=== PATIENT | male | born 1940 | race Caucasian/White ===

== ENCOUNTER → 2020-10-14 13:21 | Outpatient (BNVA) | payer MEDICARE, SELFPAY | PROVIDERS: PCP Internal Medicine Medical Oncology; Referring Provider Internal Medicine Medical Oncology; Visit Provider Surgery | DX: D17.1 Benign lipomatous neoplasm of skin and subcutaneous tissue of trunk (principal) | CPT/HCPCS: 99202 ==

== ENCOUNTER 2020-11-04 07:51 | Outpatient (REF) | payer MEDICARE, SELFPAY ==
[2020-11-04 07:58] VITALS: BMI 29.9
[2020-11-04 08:00] VITALS: BP 148/98; PULSE 89; RESP 16; TEMP 36.8; O2SAT 99
[2020-11-04 08:25] VITALS: BP 159/94; PULSE 87; RESP 16; O2SAT 96
--- NOTE | 2020-11-04 08:31 | P.OP_ITS ---
Operative Note Operative Note Date of Service: 11/04/20 Narrative: Preoperative diagnosis: Lipoma right posterior buttock Postoperative diagnosis: Same Procedure: Excision of lipoma right posterior buttock Surgeon: Darnell Faria MD Instrument And Electrical Technician: No physician Anesthesia: Local Indications for procedure: 80-year-old male patient with a pedunculated soft tissue mass in the right buttock consistent with a large lipoma. Lesion measures approximately 2 cm in length Operative findings: Pedunculated lipoma of the right buttock Specimen: Lipoma right buttock Estimated blood loss: 2 mL Complications: None Procedure details: Patient was brought to the minor surgery suite and placed in a prone position. After confirming the site of surgery and assuring informed consent the skin was prepped with Betadine and draped in a sterile fashion. Local anesthesia consisting of 1% lidocaine was infiltrated circumferentially around the soft tissue mass. An elliptical incision was then created with a 15 blade and carried out through subcutaneous tissue and around the lipoma wall. Skin was then closed using interrupted 4-0 nylon sutures. Incision was then covered with a Tegaderm dressing. Patient tolerated the procedure well was discharged to home in stable condition.
== END 2020-11-04 07:52 | disposition home or self-care (01) ==
LOC: HO.MS 07:51
PROVIDERS: PCP Internal Medicine Medical Oncology; Visit Provider Surgery
PROC: (CPT 21930; principal; 2020-11-04 08:00)
DX: D17.1 Benign lipomatous neoplasm of skin and subcutaneous tissue of trunk (principal); J45.909 Unspecified asthma, uncomplicated; N40.0 Benign prostatic hyperplasia without lower urinary tract symptoms; Z79.899 Other long term (current) drug therapy; Z88.8 Allergy status to other drugs, medicaments and biological substances; Z88.1 Allergy status to other antibiotic agents
CPT/HCPCS: 21930; 88304; 88341; 88342

== ENCOUNTER → 2020-11-13 08:48 | Outpatient (BNVA) | payer MEDICARE, SELFPAY | PROVIDERS: PCP Internal Medicine Medical Oncology; Visit Provider Surgery | DX: Z48.3 Aftercare following surgery for neoplasm (principal); D36.17 Benign neoplasm of peripheral nerves and autonomic nervous system of trunk, unspecified | CPT/HCPCS: 99212 ==

== ENCOUNTER → 2021-03-10 13:32 | Outpatient (BNVA) | payer MEDICARE, SELFPAY | PROVIDERS: PCP Internal Medicine Medical Oncology; Visit Provider Surgery | DX: D23.9 Other benign neoplasm of skin, unspecified (principal) | CPT/HCPCS: 99212 ==

== ENCOUNTER 2021-03-31 07:55 | Outpatient (REF) | payer MEDICARE, SELFPAY ==
[2021-03-31 07:59] VITALS: BMI 29.7
[2021-03-31 08:00] VITALS: BP 182/99; PULSE 93; RESP 16; TEMP 36.9; O2SAT 98
[2021-03-31 08:36] VITALS: BP 158/84; PULSE 76; RESP 16; O2SAT 96
--- NOTE | 2021-04-01 15:22 | P.OP_ITS ---
Operative Note Operative Note Date of Service: 03/31/21 Narrative: Preoperative diagnosis: Skin lesions bilateral ears Postoperative diagnosis: Same Procedure: Excision of skin lesions bilateral ears, right x1 left x2 Surgeon: Darnell Faria MD Mixer Wet Pour: None Anesthesia: Local Indications for procedure: 80-year-old male patient with crusted lesions suggestive of skin neoplasm involving the helix of bilateral ears. Operative findings: Skin lesions bilateral ears, right measuring 0.5 cm in diameter, left measuring 0.75 cm and 0.25 cm diameter Specimen: Skin lesions bilateral ears, right x1 left x2 Estimated blood loss: 2 mL Complications: None Procedure details: Patient was brought to the minor surgery suite placed in a sitting position. The site of surgery was confirmed by the patient in the bilateral ears. After assuring informed consent the years were prepped with Betadine and draped in a sterile fashion. Beginning on the left side local anesthesia was infiltrated around the lesion located at the helix of the year. Elliptical incision was made around each lesion in lesion excised. The incision was oriented parallel to the helix. Both lesions were sent to pathology for further examination. Skin was then closed using interrupted 5 0 nylon sutures. Attention was then directed to the right ear were again local anesthesia was infiltrated around the lesion. An elliptical incision was then created oriented parallel to the helix. Incision was carried down through subcutaneous tissue around the lesion. Skin was then closed using interrupted 5 0 nylon sutures. It should be noted that 2 mm margins were used around all 3 lesions. Bacitracin ointment was applied to the wounds. The patient tolerated the procedure well and was discharged to home in stable condition.
== END 2021-03-31 07:56 | disposition home or self-care (01) ==
LOC: HO.MS 07:55
PROVIDERS: PCP Internal Medicine Medical Oncology; Visit Provider Surgery
PROC: (CPT 11440; principal; 2021-03-31 08:00)
DX: D23.9 Other benign neoplasm of skin, unspecified (principal); L82.1 Other seborrheic keratosis
CPT/HCPCS: 11440; 11441; 88305

== ENCOUNTER → 2021-04-09 10:32 | Outpatient (BNVA) | payer MEDICARE, SELFPAY | PROVIDERS: PCP Internal Medicine Medical Oncology; Visit Provider Surgery | DX: Z48.817 Encounter for surgical aftercare following surgery on the skin and subcutaneous tissue (principal); Z87.2 Personal history of diseases of the skin and subcutaneous tissue | CPT/HCPCS: 99212 ==

== ENCOUNTER → 2024-12-31 14:45 | Outpatient (REF) | payer MEDICARE, SELFPAY ==
--- OUTSIDE RECORDS SUMMARY | 2024-12-12 12:00 | XMS_ITS ---
Author Organization Rocael Flores III, MD Address [address] [place] [address] Care Team Providers Care Cartoon Artist Name Role Phone Rocael Flores Primary Care Provider Allergies Allergen (clinical drug ingredient) Drug/Non Drug Allergy documented on EMR Reaction Allergy Type Onset Date Status ciprofloxacin Cipro Unknown Drug Allergy Act tigre REASON FOR VISIT Prostate cancer, stage unknown, Malignant melanomas, Benign prostatic hypertrophy, Hypertension, Hyperlipidemia, Obesity Medications Medication SIG (Take, Route, Frequency, Duration) Notes Start Date End Date Status Mupirocin 2 % PLEASE SEE ATTACHED FOR DETAILED DIRECTIONS External Active Hydrocortisone 1 % 1 application Pipe Finishing Supervisor ally Twice a day 12/16/2023 Active Finasteride 5 MG 1 tablet Orally Once a day 02/20/2024 Active Metoprolol Succinate ER 50 MG TAKE 1 TABLET BY MOUTH EVERY DAY Active Social History Tobacco Use: Social History Observation Description Date Details (start date - stop date) Never Smoker NA - NA Sex Assigned At : Social History Observation Description Sex Assigned At Male Tobacco Use/Smoking Question Answer Notes Patient is a nonsmoker Additional Findings: Tobacco Non-User Aggressive non-smoker Problems Problem Type SNOMED Code ICD Code Onset Dates Problem Status W/U Status Risk Notes Problem [id number] 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 The one on his left shoulder was 1.5 mm more on the right was 0.5 for the reservoir level. Is going to see a surgeon tomorrow to discuss aggressive resection. Vital Signs Temperature 98.5 degrees Fahrenheit 12/13/19 25 Blood pressure systolic 149 mm Hg 12/13/19 25 Blood pressure diastolic 91 mm Hg 025 Heart Rate 61 /min 12/12/2024 Height 69 in 12/12/2024 Weight 204 lbs 12/12/2024 BMI 30.12 kg/m2 12/12/2024 Encounters Encounter Location Date Provider Diagnosis Rocael Flores III, MD [address] [place] [address] [address]ED, [place]OT[place] [id number] 12/12/2024 Rocael Flores Obesity, unspecified E66.9 ; Multiple primary malignant melanomata C43.9 ; Benign prostatic hyperplasia without lower urinary tract symptoms N40.0 ; Essential (primary) hypertension I10 ; Arthritis of knee, 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 She has gained 10 pounds since his last visit. I recommended aggressive weight loss, sodium restriction through a diet low in animal fat, designed to use one half of a pound per week. 12/12/2024 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 The one on his left shoulder was 1.5 mm more on the right was 0.5 for the reservoir level. Is going to see a surgeon tomorrow to discuss aggressive resection. 12/12/2024 Benign prostatic hyperplasia without lower urinary tract symptoms (ICD-10 - N40.0) He reports rising 2 or 3 times a night to urinate. He does not wish to go back to urology for to have a prostate biopsy artery of any new medications. He says he goes right back to sleep and is happy with his quality of life at this time. 12/12/2024 Essential (primary) hypertension (ICD-10 - I10) His blood pressure is stable at 140/70. No change in his regimen was made today. 12/12/2024 Arthritis of knee, right (ICD-10 - M17.11) The pain in his knee is about the same as on his last visit. He has been to the orthopedist. He is considering whether to have surgery your continue with injections of gel. 12/12/2024 Hyperlipidemia, unspecified hyperlipidemia type (ICD-10 - E78.5) His lipids have been stable. Fasting lipid profile is being done periodically. 12/12/2024 Vitamin D deficiency (ICD-10 - E55.9) He will continue on a vitamin D supplement. 12/12/2024 Prostate nodule (ICD-10 - N40.2) He is under the care of Urology I counseled him today to allow the biopsy and appropriate treatment to take place. He is going to consider it.He has toe the urologist he does not want a biopsy or treatment the PSA has been stable. Last September, when he saw the urologist last the PSA has dropped slightly. Plan Of Treatment Medication Medication Name Sig Start Date Stop Date Notes Mupirocin 2 % PLEASE SEE ATTACHED FOR DETAILED DIRECTIONS External Hydrocortisone 1 % 1 application Pipe Finishing Supervisor ally Twice a day 12/16/2023 Finasteride 5 MG 1 tablet Orally Once a day 02/20/2024 Metoprolol Succinate ER 50 MG TAKE 1 TAB LET BY MOUTH EVERY DAY Next Appt Details Follow Up: 6 Weeks, Reason: OV Provider Name:Rocael Flores, 01/23/2025 03:00:00 PM, [address] [place] [address] [address], [place], [address], Provider Name:Rocael Flores, 09/13/2025 04:00:00 PM, [address] [place] [address] [address], [place], [phone], Progress Notes * MARKOS Logan Bolanos JrDOB:[birth year] (84 yo M)Acc No.[id number]:12/12/2024 Progress Notes Patient: Logan LEWIS Luis Miguel Schaefer Provider: Cuong Flores MD :1940 A ge:84 Y S ex:Male Date:12/12/2024 Address:[address] [place] [id number] Subjective: * Chief Complaints: * P rostate cancer, stage unknownMalignant melanomasBenign prostatic hypertrophyHypertensionHyperlipidemiaObesity * HPI: C OVID-19 Screening: He went to a digital marketing lead recently and was found to have a suspicious cutaneous neoplasm on both shoulders left than right. Biopsy of the lesion on the left shoulder malignant melanoma 1.5 mm in depth. The lesion on the right shoulder showed malignant melanoma 0.5 mm in depth.? He has an appointment tomorrow with the surgeon in [facility] to discussed primary treatment. We had a long discussion today about the approach this. I made several points.? The first was at his prostate cancer is much more chronic and indolent process. He has refused to allow the neurologist to obtain a tissue diagnosis. A biopsy of prostate years ago resulted in an episode of sepsis and he is afraid of this being repeated. Malignant melanoma however more virulent and lethall. The pointed his prognosis could be determined after surgery and possibly after staging imaging. I believe he will agree to the surgery. Family is going to call me after the consultation to inform me. He admits to nocturia 2 or 3 times a night.? He is now in assisted living. He has a brace on his right foot because he says it drags when he walks. This development will be investigated. He is otherwise healthy and well.? His mind is intact. Questions H ave you had any new onset fever, chills, cough, congestion, sore throat, shortness of breath, muscle aches? N o * ROS: G eneral/Constitutional: pain R ight knee, otherwise only normal aches and pains.?Chills d enies. F atigue a dmits. F ever d enies. E NT: Decreased hearing d enies. R espiratory: Cough d enies. C ardiovascular: Chest pain with exertion d enies. D yspnea on exertion?with moderate activity. S hortness of breath w ith exertion. G astrointestinal: Constipation d enies. D ecreased appetite d enies.?Diarrhea d enies. H eartburn d enies. N ausea d enies. R ectal bleeding?denies. V omiting d enies. H ematology: bruising d enies. p etechiae d enies. S wollen glands n one have been noted. G enitourinary: Frequent urination t hree times a night. M usculoskeletal: Muscle aches d enies. P ainful joints d enies. S ciatica d enies. W eakness t hat is generalized. S kin: Itching d enies. R megan d enies. S kin lesion(s)?denies. N eurologic: Difficulty speaking d enies. D izziness d enies.?Headache d enies. L ow back pain d enies. P sychiatric: Depressed mood d enies. * Medical History: * Surgical History: h erniorrhaphy torn meniscus left knee 2014No history * Hospitalization/Major Diagno stic Procedure: N o history * Family History: F ather: 80 yrs, emphysema, cardiomyopathy. M other: 77 yrs, cardiac disease, myocardial infarction. 2 brother(s) - healthy. 3 daughter(s) . . One daughter suffers form lung problems, one daughter had a brain tumor, and had radiation. * Social History: T obacco Use: T obacco Use/Smoking P contreras is a n onsmoker A dditional Findings: Tobacco Non-User A ggressive non-smoker Zo jackson has been to his Irene for many years. They have 4 daughters. He and his are both accountants. He lives in [place]. * Medications: T akingFinasteride 5 MG Tablet 1 tablet Orally Once a day Hydrocortisone 1 % Cream 1 application Externally Twice a day Metoprolol Succinate ER 50 MG Tablet Extended Release 24 Hour TAKE 1 TABLET BY MOUTH EVERY DAY Mupirocin 2 % Ointment PLEASE SEE ATTACHED FOR DETAILED DIRECTIONS External Medication List reviewed and reconciled with the patientTaking Finasteride 5 MG Tablet 1 tablet Orally Once a day Taking Hydrocortisone 1 % Cream 1 application Externally Twice a day Taking Metoprolol Succinate ER 50 MG Tablet Extended Release 24 Hour TAKE 1 TABLET BY MOUTH EVERY DAY Taking Mupirocin 2 % Ointment PLEASE SEE ATTACHED FOR DETAILED DIRECTIONS External Medication List reviewed and reconciled with the patient * Allergies: C iprono[Allergies Verified] Objective: * Vitals: H t: 69, Wt:204, BMI:30.12, BP:149/91, HR:61, Temp:98.5, Ht-cm: 175.26, Wt-k.53. * Examination: G eneral Examination: GENERAL APPEARANCE: p leasant, well nourished, well developed, in no acute distress, calm and relaxed: obese: elderly man. HEAD: a traumatic, normocephalic. EYES: e david, perrla, anicteric, conjugate. EARS: n ormal. NOSE: s eptum intact. ORAL CAVITY: n ormal, unremarkable. NECK/THYROID: n o jugular venous distention, no carotid bruit, thyroid normal. LYMPH NODES: n o enlarged lymph nodes,spleen normal. SKIN: n o suspicious lesions, anicteric. HEART: n o clicks, gallops, murmurs, or rubs, regular rhythm, S1, S2 normal, no s3, or vascular bruits. LUNGS: c lear to auscultation . BREASTS: no masses palpable bilaterally. ABDOMEN: b owel sounds normal, no ascites, no organomegaly, no mass: centripital obesity. RECTAL EXAM: n ot examined. MUSCULOSKELETAL: e xtremities unremarkable, no clubbing, cyanosis or edema. PERIPHERAL PULSES: n ormal. NEUROLOGIC: a lert and oriented, cranial nerves 2-12 grossly intact, deep tendon reflexes 2+ symmetrical, motor strength diminishedupper and lower extremities, sensory exam intact, Speech clear, cognitive function intact, memory without deficits, generalized musculoskeletal weakness, uses a walker. PSYCH: a lert, oriented: cognitive function intact: cooperative with exam: good eye contact: speech clear: thought process logical, goal directed. ? Assessment: * Assessment: 1. M hughtiple primary malignant melanomata - C43.9 (Primary) N otes :He has a lesion on each shoulder. The one on his left shoulder was 1.5 mm more on the right was 0.5 for the reservoir level. Is going to see a surgeon tomorrow to discuss aggressive resection. 2 . O besity, unspecified - E66.9 N otes :His body mass index is 31. She has gained 10 pounds since his last visit. I recommended aggressive weight loss, sodium restriction through a diet low in animal fat, designed to use one half of a pound per week. 3 . B enign prostatic hyperplasia without lower urinary tract symptoms - N40.0? Notes :He reports rising 2 or 3 times a night to urinate. He does not wish to go back to urology for to have a prostate biopsy artery of any new medications. He says he goes right back to sleep and is happy with his quality of life at this time. 4 . E ssential (primary) hypertension - I10 N otes :His blood pressure is stable at 140/70. No change in his regimen was made today. 5 . A rthritis of knee, right - M17.11 N otes :The pain in his knee is about the same as on his last visit. He has been to the orthopedist. He is considering whether to have surgery your continue with injections of gel. 6 . H yperlipidemia, unspecified hyperlipidemia type - E78.5 N otes :His lipids have been stable. Fasting lipid profile is being done periodically. 7 . V itamin D deficiency - E55.9 N otes :He will continue on a vitamin D supplement. 8 . P rostate nodule - N40.2 N otes :He is under the care of Urology I counseled him today to allow the biopsy and appropriate treatment to take place. He is going to consider it.He has toe the urologist he does not want a biopsy or treatment the PSA has been stable. Last September, when he saw the urologist last the PSA has dropped slightly. Plan: * Treatment: 2. O thers Continue Metoprolol Succinate ER Tablet Extended Release 24 Hour, 50 MG, TAKE 1 TABLET BY MOUTH EVERY DAY; C ontinue Finasteride Tablet, 5 MG, 1 tablet, Orally, Once a day; C ontinue Hydrocortisone Cream, 1 %, 1 application, Externally, Twice a day. * Procedure Codes: * Preventive Medicine: Counseling: C are goal follow-up plan: Counseling for abnormal BMI given Y es Above Normal BMI Follow-up D ietary management education, guidance, and counseling, Dietary needs education, Exercise promotion: strength training, Exercise promotion: stretching, Feeding regime, Giving encouragement to exercise, Lifestyle education regarding diet, Nutrition / feeding management, Nutrition therapy, Prescribed activity/exercise education, Prescribed diet education, Prescribed dietary intake, Special diet education, Weight monitoring , Intervention, Order not done: Medical or Other reason not done * Follow Up: 6 Weeks (Reason: OV) * Images: * Sign off status: Completed true * Provider: Cuong Flores MD Date: 12/12/2024 Generated for Eric ferrer/Faxing/eTransmitting on: 0 12/31/2024 08:14 PM EDT History and Physical Notes * HPI (History of Present Illness) Category Sub-Category Detail Notes COVID-19 Screening Questions Have you had any new onset fever, chills, cough, congestion, sore throat, shortness of breath, muscle aches?: No Examination Category Sub-Category Detail Notes General Examination GENERAL APPEARANCE: pleasant , well nourished, well developed, in no acute distress, calm and relaxed: obese: elderly man HEAD: atraumatic, normocep halic EYES: eomi, perrla, anicte bianka, conjugate EARS: normal NOSE: septum intact NECK/THYROID: no jugular venous di stention, no carotid bruit, thyroid normal HEART: no clicks, gallops, murmurs, or rubs, regular rhythm, S1, S2 normal, no s3, or vascular bruits LUNGS: clear to auscultatio n ABDOMEN: bowel sounds normal, no ascites, no organomegaly, no mass: centripital obesity NEUROLOGIC: alert and oriented, cranial nerves 2-12 grossly intact, deep tendon reflexes 2+ symmetrical, motor strength diminishedupper and lower extremities, sensory exam intact, Speech clear, cognitive function intact, memory without deficits, generalized musculoskeletal weakness, uses a walker SKIN: no suspicious lesion s, anicteric PERIPHERAL PULSES: normal BREASTS: no masses palpable b ilaterally MUSCULOSKELETAL: extremities unremark able, no clubbing, cyanosis or edema LYMPH NODES: no enlarged lymph no keren,spleen normal RECTAL EXAM: not examined PSYCH: alert, oriented: cog nitive function intact: cooperative with exam: good eye contact: speech clear: thought process logical, goal directed ORAL CAVITY: normal, unremarkable
--- OUTSIDE RECORDS SUMMARY | 2024-12-12 12:19 | XMS_ITS ---
Author Organization Rocael Flores III, MD Address [address] [address] Care Team Providers Care Rechecker Name Role Phone Rocael Flores Primary Care Provider [phone] REASON FOR VISIT Surgical Appointments Social History Sex Assigned At : Social History Observation Description Sex Assigned At Male Encounters Encounter Location Date Provider Diagnosis Rocael Flores III, MD [address] [place] [address] [place] [phone] 12/12/2024 Rocael Flores Plan Of Treatment Next Appt Details Provider Name:Rocael Flores, 01/23/2025 03:00:00 PM, [address] [place] [address] [place], [address], Provider Name:Rocael Flores, 09/13/2025 04:00:00 PM, [address] [place] [address] [place], [address], Progress Notes * Logan BURROWS JrDOB:[birth year] (84 yo M)Acc No.[id number]:12/12/2024 Patient: Zo SAUCEDOLogan Jr :1940 A ge:84 Y S ex:Male Address:[address] [place] [phone] * true * Date: Generated for Printi ng/Faxing/eTransmitting on: 0 12/31/2024 08:13 PM EDT
--- OUTSIDE RECORDS SUMMARY | 2024-12-14 10:03 | XMS_ITS ---
Author Organization Rocael Flores III, MD Address [address] [place] [address] Care Team Providers Care Front End Ui Developer Name Role Phone Rocael Flores Primary Care Provider [phone] REASON FOR VISIT FYI Social History Sex Assigned At : Social History Observation Description Sex Assigned At Male Encounters Encounter Location Date Provider Diagnosis Rocael Flores III, MD [address] [place] [address] [place] [address] 12/14/2024 Rocael Flores Plan Of Treatment Next Appt Details Provider Name:Rocael Flores, 01/23/2025 03:00:00 PM, [address] [place] [address] [place], [address], Provider Name:Rocael Flores, 09/13/2025 04:00:00 PM, [address] [place] [address] [place], [address], Progress Notes * Logan BURROWS JrDOB:[birth year] (84 yo M)Acc No.[id number]:12/14/2024 Patient: Zo SAUCEDOLogan Jr :1940 A ge:84 Y S ex:Male Address:[address] [place] [phone] * true * Date: Generated for Printi ng/Faxing/eTransmitting on: 0 12/31/2024 08:14 PM EDT
--- OUTSIDE RECORDS SUMMARY | 2024-12-20 11:30 | XMS_ITS | Encounter Summary ---
Author Organization [facility] Address [address] [place] [address] Care Team Providers Care Vegetable Tier Name Role Phone Rocael Flores MD Primary Care Provider [phone] Reason for Referral * Imaging (Routine) - Closed Specialty Diagnoses / Procedures Referred By Dianelys t Referred To Contact Diagnoses Melanoma of neck (CMS/HCC V24, CMS/HCC V28) Melanoma of back (CMS/HCC V24, CMS/HCC V28) Procedures NM Tumor Loc SPECT w CT Single Area 1 Day Shruti Haq MD [address] [facility], [address] [place] [address] Phone: tel: fax: External Performed Referral ID Status Reason Start Date Expiration Date Visits Re quested Visits Authorized [id number] Closed 12/28/2024 12/28/2025 1 1 Reason for Visit * Reason Comments melanoma back Encounter Details Date Type Department Care Team (Late st Contact Info) Description 12/20/2024 11:30 AM EDT Consult [facility] [place] [address] [place] [address] Shruti Haq MD [address] [facility], [address] [place] [address] Melanoma of neck (CMS/HCC V24, CMS/HCC V28) (Primary Dx); Melanoma of back (CMS/HCC V24, CMS/HCC V28) Social History Tobacco Use Types Packs/Day Years Used Date Smoking Tobacco: Never Assessed Sex and Gender Information Value Date Recorded Sex Assigned at Not on file Legal Sex Male 7:58 PM EST Gender Identity Not on file Sexual Orientation Not on file documented as of this encounter Progress Notes * Leeann Irizarry MA - 12/20/2024 11:30 AM EDTAddended by: LEEANN IRIZARRY on: 12/28/2024 03:13 PM Modules accepted: Orders * Leeann Irizarry MA - 12/20/2024 11:30 AM EDTAddended by: LEEANN IRIZARRY on: 12/28/2024 03:18 PM Modules accepted: Orders * Shruti Haq MD - 12/20/2024 11:30 AM EDT General Surgery Outpatient Consultation Note Chief Complaint Patient presents with melanoma back HPI: Mr. Astorga is a 84 y.o. year old male referred to us by JAIRO Ochoa for evaluation and management of 2 biopsy-proven melanoma 1 located in his left posterior trapezial neck region which was 1.5 mm deep with 3 mitotic figures, there was some ulceration, there was some regression, there was no lymphovascular invasion however the deep margin was positive for invasive melanoma. The other lesion is located on his right upper back, 0.5 mm deep with 0-1 mitotic figures. There was some regression. No lymphovascular invasion and only the peripheral margin was involved with melanoma in situ making it a much less concerning lesion. Patient is accompanied by his daughter today. He does not have any history of skin cancer in the past. PMH: Hypertension, BPH, specifically patient tells me he has no known heart problems and has never followed up with cardiology PSH: He had knee surgery in 1957 Meds: Metoprolol, finasteride, calcium, multivitamin Alls: Patient has no allergy information on record. SH: Never smoker, no alcohol or drug use FH: Negative for melanoma ROS: Negative for headaches, dizziness, chest pain shortness of breath changes in the weight or appetite, dysuria. He does tend to get leg swelling and he does get urinary urgency. He does ambulate with the aid of a walker All other systems reviewed and are negative except the above and what is detailed in the HPI Physical Exam: General Appearance: NAD, conversant Psych: A&O x 3, affect appropriate Neuro: GCS 15, CAN x 4, he is able to ambulate but does utilize a walker and is fairly slow HEENT: no scleral icterus or pallor, mucus membranes moist Neck: Within the left posterior lateral trapezial neck there is an approximately 2 x 1.5 cm lesion that still has some pigmentation along 1 edge the other part is healed over and is erythematous fromthe shave biopsy. This is the lesion that is more deeply invasive. I do not feel any adenopathy anteriorly posteriorly or within the supraclavicular fossa bilaterally Axilla: I do not feel any axillary adenopathy bilaterally Lungs: no accessory respiratory muscle use Back: Within the right upper back there is a 1.3 x 1.4 cm erythematous spot with no residual pigmentation consistent with the other melanoma that is more thin. At this point the patient his daughter and I had a very long conversation regarding the nature of these 2 melanoma. They both require wide excision probably with a 1 cm margin at most for the lesion on the right upper back and probably a little bit more than that but not quite to located in the left posterior lateral trapezial neck region. I think the right upper back will be able to be closed with a layered closure while he will require a flap closure for the posterior neck given the anticipated size of the resection. We also described the fact that because the melanoma on the left posteriorlateral neck region was more than a millimeter deep sentinel lymph nodes will be obtained from the either cervical or axillary region depending on the results of a lymphoscintigram which we will complete on the morning of surgery. Risks of surgery include bleeding, infection, need for further surgery for cosmesis. Will need to wait for the results in terms of the everardo status. I told them that mar gins do not usually tend to be much of an issue when we are doing a wider excision for these lesions. If however he has everardo disease he will require referral to oncology for consideration of immune therapy but hopefully if the lymph nodes are negative and everything is clear he can just revert back to routine follow-up with surgery and dermatology for exams periodically. All questions answered during this consult and we will get him on the schedule at his convenience. He tells me he just had afull physical so probably does not need to have his labs repeated but has not had an EKG in a while ASSESSMENT / PLAN: 84-year-old male presenting due to invasive melanoma 1 involving the left posterior lateral neck region and the other involving the right upper back. Plan wide excision of both of these areas with a sentinel lymph node to be determined via lymphoscintigram around the left neck site. He will be scheduled at his convenience for a date at [facility]. Presumably this will be done as an outpatient unless there are any perioperative issues. I had like him to see his PCP again for at least a blood pressure check, limited physical and an EKG. Labs do not need to be repeated since they were just done a month ago. He will be scheduled at his convenience documented in this encounter Plan of Treatment Upcoming Encounters Date Type Department Care Team (Latest Contact Info) Description 01/11/2025 10:00 AM EDT Appointment [facility] Nuclear Medicine [address] [place] [phone] 01/11/2025 4:50 PM EDT Hospital Encounter [facility] Ambulatory Surgical Unit [address] [place] [phone] Shruti Haq MD [address] [facility], [address] [place] [address] 01/11/2025 4:50 PM EDT - 01/11/2025 7:10 PM EDT Surgery [facility] Ambulatory Surgical Unit [address] [place] [phone] Shruti Haq MD [address] [facility], [address] [place] [address] RIGHT UPPER BACK LYMPHOCINTOGRAM [21923 (CPT )] Scheduled Orders Name Type Priority Associated Diagnoses Orde r Schedule NM Tumor Loc SPECT w CT Single Area 1 Day Imaging Routine Melanoma of neck (CMS/HCC V24, CMS/HCC V28) Melanoma of back (CMS/HCC V24, CMS/HCC V28) Expected: 12/28/2024, Expires: 12/28/2025 Scheduled Procedures Name Priority Associated Diagnoses Date/Ti me EXCISION LESION TRUNK Melanoma of neck (CMS/HCC V24, CMS/HCC V28) Melanoma of back (CMS/HCC V24, CMS/HCC V28) 01/11/2025 4:50 PM EDT EXCISION LESION HEAD OR NECK Melanoma of neck (CMS/HCC V24, CMS/HCC V28) Melanoma of back (CMS/HCC V24, CMS/HCC V28) 01/11/2025 4:50 PM EDT TRANSFER TISSUE ADVANCEMENT ROTATIONAL FLAP Melanoma of neck (CMS/HCC V24, CMS/HCC V28) Melanoma of back (CMS/HCC V24, CMS/HCC V28) 01/11/2025 4:50 PM EDT documented as of this encounter Visit Diagnoses Diagnosis Melanoma of neck (CMS/HCC V24, CMS/HCC V28)- Primary Melanoma of back (CMS/HCC V24, CMS/HCC V28) Melanoma of neck (CMS/HCC V24, CMS/HCC V28) Melanoma of back (CMS/HCC V24, CMS/HCC V28) Melanoma of neck (CMS/HCC V24, CMS/HCC V28) Melanoma of back (CMS/HCC V24, CMS/HCC V28) documented in this encounter Orders Case Request Count Last Ordered Date First Orde red Date CASE REQUEST OPERATING ROOM 1 12/28/2024 documented in this encounter Care Teams Vegetable Tier Relationship Specialty Start Date End Date Rocael Flores MD [address] [address] PCP - General Oncology 12/07/24 documented as of this encounter
--- OUTSIDE RECORDS SUMMARY | 2024-12-21 09:15 | XMS_ITS ---
Author Organization Rocael Flores III, MD Address [address] [facility] [address] Care Team Providers Care Automatic Dispenser Mechanic Name Role Phone Rocael Flores Primary Care Provider REASON FOR VISIT Surgery Information Social History Sex Assigned At : Social History Observation Description Sex Assigned At Male Encounters Encounter Location Date Provider Diagnosis Rocael Flores III, MD [address] [place] [address] [place] [address] 12/21/2024 Rocael Flores Plan Of Treatment Next Appt Details Provider Name:Rocael Flores, 01/23/2025 03:00:00 PM, [address] [place] [address] [place], [phone], Provider Name:Rocael Flores, 09/13/2025 04:00:00 PM, [address] [place] [address] [place], [phone], Progress Notes * Logan BURROWS JrDOB:[birth year] (84 yo M)Acc No.[id number]:12/21/2024 Patient: Zo SAUCEDOLogan Jr :1940 A ge:84 Y S ex:Male Address:[address] [place] [phone] * true * Date: Generated for Printi ng/Faxing/eTransmitting on: 0 12/31/2024 08:14 PM EDT
--- OUTSIDE RECORDS SUMMARY | 2024-12-31 10:15 | XMS_ITS ---
Author Organization Rocael Flores III, MD Address [address] [place] [place] [address] Care Team Providers Care Environmental Services Tech Name Role Phone Rocael Flores Primary Care Provider Allergies Allergen (clinical drug ingredient) Drug/Non Drug Allergy documented on EMR Reaction Allergy Type Onset Date Status ciprofloxacin Cipro Unknown Drug Allergy Act tigre REASON FOR VISIT Clearance for Left posterior lateral neck region and right upper back- Lymphoscintigram at [facility] Medications Medication SIG (Take, Route, Frequency, Duration) Notes Start Date End Date Status Finasteride 5 MG 1 tablet Orally Once a day 02/20/2024 Active Hydrocortisone 1 % 1 application Food Services Manager ally Twice a day 12/16/2023 Active Mupirocin 2 % PLEASE SEE ATTACHED FOR DETAILED DIRECTIONS External Active Metoprolol Succinate ER 50 MG TAKE 1 TABLET BY MOUTH EVERY DAY Active Social History Tobacco Use: Social History Observation Description Date Details (start date - stop date) Never Smoker NA - NA Sex Assigned At : Social History Observation Description Sex Assigned At Male Tobacco Use/Smoking Question Answer Notes Patient is a nonsmoker Additional Findings: Tobacco Non-User Aggressive non-smoker Vital Signs Temperature 98.1 degrees Fahrenheit 01/01/20 25 Blood pressure systolic 148 mm Hg 01/01/20 25 Blood pressure diastolic 85 mm Hg 025 Heart Rate 57 /min 12/31/2024 Respiratory Rate 15 /min 12/31/2024 Height 69 in 12/31/2024 Weight 202 lbs 12/31/2024 BMI 29.83 kg/m2 12/31/2024 Oximetry 99 % 12/31/2024 Encounters Encounter Location Date Provider Diagnosis Rocael Flores III, MD [address] [place] [address] [place] [phone] 12/31/2024 Rocael Flores 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 The one on his left shoulder was 1.5 mm more on the right was 0.5 for the reservoir level. Is going to see a surgeon tomorrow to discuss aggressive resection. 12/31/2024 Essential (primary) hypertension (ICD-10 - I10) 12/31/2024 Chronic fatigue (ICD-10 - R53.82) Plan Of Treatment Medication Medication Name Sig Start Date Stop Date Notes Finasteride 5 MG 1 tablet Orally Once a day 02/20/2024 Hydrocortisone 1 % 1 application Food Services Manager ally Twice a day 12/16/2023 Mupirocin 2 % PLEASE SEE ATTACHED FOR DETAILED DIRECTIONS External Metoprolol Succinate ER 50 MG TAKE 1 TAB LET BY MOUTH EVERY DAY Pending Test Test Name Order Date ECG 12 lead EKG 12/31/2024 Next Appt Details Follow Up: as scheduled, Radha son: OV Provider Name:Rocael Flores, 01/23/2025 03:00:00 PM, [address] [place] [address] [place], [phone], Provider Name:Rocael Flores, 09/13/2025 04:00:00 PM, [address] [place] [address] [place], [phone], Progress Notes * Logan BURROWS JrDOB:[birth year] (84 yo M)Acc No.[id number]:12/31/2024 Patient: Zo SAUCEDOLogan Jr Provider: Cuong Flores MD :1940 A ge:84 Y S ex:Male Date:12/31/2024 Address:[address] [place] [phone] Subjective: * Chief Complaints: * 1 . Clearance for Left posterior lateral neck region and right upper back- Lymphoscintigram at [facility]. * HPI: C OVID-19 Screening: got covid and flu vaccine [facility] 01/11, noct x 3. Questions H ave you had any new onset fever, chills, cough, congestion, sore throat, shortness of breath, muscle aches? N o * ROS: G eneral/Constitutional: pain o nly normal aches and pains. C hills d enies.?Fatigue a dmits. F ever d enies. E NT: Decreased hearing d enies. R espiratory: Cough d enies. C ardiovascular: Chest pain with exertion d enies. D yspnea on exertion?denies. S hortness of breath d enies. G astrointestinal: Constipation d enies. D ecreased appetite d enies.?Diarrhea d enies. H eartburn d enies. N ausea d enies. R ectal bleeding?denies. V omiting d enies. H ematology: bruising d enies. p etechiae d enies. S wollen glands n one have been noted. G enitourinary: Frequent urination d enies. M usculoskeletal: Muscle aches d enies. P ainful joints d enies. S ciatica d enies. W eakness d enies. S kin: Itching d enies. R megan d enies. S kin lesion(s)?denies. N eurologic: Difficulty speaking d enies. D izziness d enies.?Headache d enies. L ow back pain d enies. P sychiatric: Depressed mood d enies. * Medical History: H ernia, Obesity, Hypertension, Benign prostatic hypertrophy, Nodular prostate with elevated PSA, Arthritis right knee, Chronic cough. * Surgical History: h erniorrhaphy , torn meniscus left knee 2013, No history . * Hospitalization/Major Diagno stic Procedure: N o history . * Family History: F ather: 80 yrs, emphysema, cardiomyopathy. M other: 77 yrs, cardiac disease, myocardial infarction. 2 brother(s) - healthy. 3 daughter(s) . . One daughter suffers form lung problems, one daughter had a brain tumor, and had radiation. * Social History: T obacco Use: T obacco Use/Smoking Diane chairez is a n onsmoker A dditional Findings: Tobacco Non-User A ggressive non-smoker Zo jackson has been to his Irene for many years. They have 4 daughters. He and his are both accountants. He lives in [place]. * Medications: T aking Metoprolol Succinate ER 50 MG Tablet Extended Release 24 Hour TAKE 1 TABLET BY MOUTH EVERY DAY , Taking Finasteride 5 MG Tablet 1 tablet Orally Once a day , Taking Hydrocortisone 1 % Cream 1 application Externally Twice a day , Taking Mupirocin 2 % Ointment PLEASE SEE ATTACHED FOR DETAILED DIRECTIONS External , Medication List reviewed and reconciled with the patient * Allergies: C ipro. Objective: * Vitals: H t: 69, Wt:202, BMI:29.83, BP:148/85, HR:57, RR:15, Temp:98.1, Oxygen sat %:99, Ht-cm: 175.26, Wt-k.63. * Examination: G eneral Examination: GENERAL APPEARANCE: p leasant, well nourished, well developed, in no acute distress, calm and relaxed. HEAD: a traumatic, normocephalic. EYES: e david, [...] sounds normal, no ascites, no organomegaly, no mass. RECTAL EXAM: n ot examined. MUSCULOSKELETAL: e xtremities unremarkable, no clubbing, cyanosis or edema. PERIPHERAL PULSES: n ormal. NEUROLOGIC: a lert and oriented, cranial nerves 2-12 grossly intact, deep tendon reflexes 2+ symmetrical, motor strength normal upper and lower extremities, sensory exam intact. PSYCH: a lert, oriented. Assessment: * Assessment: 1. M bon primary malignant melanomata - C43.9 N otes :He has a lesion on each shoulder. The one on his left shoulder was 1.5 mm more on the right was 0.5 for the reservoir level. Is going to see a surgeon tomorrow to discuss aggressive resection. 2 . E ssential (primary) hypertension - I10 3 . C hronic fatigue - R53.82 Plan: * Treatment: 2. E ssential (primary) hypertension I maging: ECG 12 lead EKG 3. C hronic fatigue I maging: ECG 12 lead EKG 4. O thers Continue Metoprolol Succinate ER Tablet Extended Release 24 Hour, 50 MG, TAKE 1 TABLET BY MOUTH EVERY DAY; C ontinue Finasteride Tablet, 5 MG, 1 tablet, Orally, Once a day; C ontinue Hydrocortisone Cream, 1 %, 1 application, Externally, Twice a day. * Procedure Codes: 9 4760 MEASURE BLOOD OXYGEN LEVEL * Follow Up: a s scheduled (Reason: OV) * Images: * The named appointment provid er may or may not be the originator of this progress note, and it is not deemed complete until electronically signed by the appointment provider. Sign off status: Pending * Provider: Cuong Flores MD Date: 12/31/2024 Generated for Eric ferrer/Mode/Andraeitting on: 12/31/2024 08:14 PM EDT History and Physical Notes * HPI (History of Present Illness) Category Sub-Category Detail Notes COVID-19 Screening Questions Have you had any new onset fever, chills, cough, congestion, sore throat, shortness of breath, muscle aches?: No Examination Category Sub-Category Detail Notes General Examination GENERAL APPEARANCE: pleasant , well nourished, well developed, in no acute distress, calm and relaxed HEAD: atraumatic, normocep halic EYES: eomi, perrla, anicte bianka, conjugate EARS: normal NOSE: septum intact NECK/THYROID: no jugular venous di stention, no carotid bruit, thyroid normal HEART: no clicks, gallops, murmurs, or rubs, regular rhythm, S1, S2 normal, no s3, or vascular bruits LUNGS: clear to auscultatio n ABDOMEN: bowel sounds normal, no ascites, no organomegaly, no mass NEUROLOGIC: alert and oriented, cranial nerves 2-12 grossly intact, deep tendon reflexes 2+ symmetrical, motor strength normal upper and lower extremities, sensory exam intact SKIN: no suspicious lesion s, anicteric PERIPHERAL PULSES: normal BREASTS: no masses palpable b ilaterally MUSCULOSKELETAL: extremities unremark able, no clubbing, cyanosis or edema LYMPH NODES: no enlarged lymph no keren,spleen normal RECTAL EXAM: not examined PSYCH: alert, oriented ORAL CAVITY: normal, unremarkable
--- NOTE | 2024-12-31 15:05 | ECG_ITS ---
Test Reason : I10 R53.82 Blood Pressure : */* mmHG Vent. Rate : 54 BPM Atrial Rate : 54 BPM P-R Int : 286 ms QRS Dur : 136 ms QT Int : 480 ms P-R-T Axes : 70 -28 -10 degrees QTcB Int : 455 ms Sinus bradycardia with 1st degree A-V block with Premature atrial complexes with Aberrant conduction Right bundle branch block Minimal voltage criteria for LVH, may be normal variant ( R in aVL ) Abnormal ECG When compared with ECG of 28-Jul-2006 12:44, NH interval has increased Nonspecific T wave abnormality now evident in Lateral leads Referred By: Rocael Flores Electronically Signed By: MICHAEL LEWIS
--- OUTSIDE RECORDS SUMMARY | 2024-12-31 20:14 | XMS_ITS | Patient Health Record ---
Author Organization Rocael Flores III, MD Address [address] [place] [address] Care Team Providers Care Water Carter Name Role Phone Rocael Flores Primary Care Provider Allergies Allergen (clinical drug ingredient) Drug/Non Drug Allergy documented on EMR Reaction Allergy Type Onset Date Status ciprofloxacin Cipro Unknown Drug Allergy Act tigre Reason For Referral Reason Evaluate and Treat Established Patient Needs Follow Up Appointment Diagnosis 1 Benign prostatic hyp erplasia without lower urinary tract symptoms (N40.0) Diagnosis 2 Prostate nodule (N40 .2) Referral Organization Rocael Flores III, MD Referring Provider First Name Rocael Referring Provider Last Name Mark Referring Provider Speciality Internal M edicine Referred Provider GEOVANNA SHAW Referred Provider Specialty Urology General Notes Jacinta Lynn 09/18/2024 09:58:11 AM > Contacted office via fax and they have schedule appointment for patient for 09/21/24. Referral Priority Routine Referral Appointment Date 09/21/2024 Medications Medication SIG (Take, Route, Frequency, Duration) Notes Start Date End Date Status Finasteride 5 MG 1 tablet Orally Once a day 02/20/2024 Active Hydrocortisone 1 % 1 application Evs Manager ally Twice a day 12/16/2023 Active Mupirocin 2 % PLEASE SEE ATTACHED FOR DETAILED DIRECTIONS External Active Metoprolol Succinate ER 50 MG TAKE 1 TABLET BY MOUTH EVERY DAY Active Immunizations Vaccine Route Administration Date Status Comme nts Pneumococcal Unknown 08/10/2011 Administered Influenza Unknown 02/07/2015 Administered Influenza no Preserv 3 and > Unknown 02/01/2017 Adminis tered Influenza no Preserv 3 and > Unknown 01/24/2020 Adminis tered Zoster Unknown 06/06/2018 Administered Zoster Unknown 02/16/2018 Administered Influenza no Preserv 3 and > Unknown 03/15/2021 Adminis tered Influenza High Dose Quadrivalent Unknown 02/21/2023 Adm inistered RSV vaccine, bivalent, prote in subunit RSV prefusion F Unknown 04/01/2023 Administered PPV 23 Unknown 01/11/2014 Administered COVID 19 Moderna Unknown 07/03/2020 Administered COVID 19 Moderna Unknown 06/06/2020 Administered COVID Moderna Bivalent Unknown 02/05/2022 Administered COVID 19 Moderna Unknown 06/06/2020 Administered COVID 19 Moderna Unknown 03/15/2021 Administered PCV13 Unknown 09/22/2015 Administered Tdap Unknown 02/07/2015 Administered COVID-19 Moderna SPIKEVAX Unknown 03/11/2023 Administer ed COVID-19 Moderna SPIKEVAX Unknown 03/11/2023 Administer ed COVID-19 Moderna SPIKEVAX Unknown 01/07/2024 Administer ed Influenza no Preserv 3 and > Unknown 01/14/2012 Adminis tered Fluzone High-Dose (HD-IIV3) Unknown 01/11/2014 Administ ered Influenza High Dose Quadrivalent Unknown 01/20/2022 Adm inistered Influenza High Dose Quadrivalent Unknown 01/24/2020 Adm inistered Fluzone High-Dose (HD-IIV3) Unknown 02/07/2015 Administ ered Influenza High Dose Quadrivalent Unknown 02/23/2021 Adm inistered Influenza no Preserv 3 and > Unknown 01/21/2013 Adminis tered Fluzone High-Dose (HD-IIV3) Unknown 01/30/2017 Administ ered Social History Tobacco Use: Social History Observation Description Date Details (start date - stop date) Never Smoker NA - NA Sex Assigned At : Social History Observation Description Sex Assigned At Male Tobacco Use/Smoking Question Answer Notes Patient is a nonsmoker Additional Findings: Tobacco Non-User Aggressive non-smoker Alcohol Screen Question Answer Notes Did you have a drink containing alcohol in the p ast year? No Points 0 Interpretation Negative Problems Problem Type SNOMED Code ICD Code Onset Dates Problem Status W/U Status Risk Notes Problem Obesity (121129978) Obesity, unspecified (E66.9) Active confirmed His body mass index is 31. She has gained 10 pounds since his last visit. I recommended aggressive weight loss, sodium restriction through a diet low in animal fat, designed to use one half of a pound per week. Problem Essential hypertension (38591886) Essential (primary) hypertension (I10) Active confirmed His blood pressure is stable at 140/70. No change in his regimen was made today. Problem 21077513 Chronic fatigue (R53.82) Active confirmed He complains that he is tired all the time. His blood work was stable. Problem 30250981 Vitamin D deficiency (E55.9) Active confirmed He will continue on a vitamin D supplement. Problem Hyperlipidaemia (84988325) Hyperlipidemia, unspecified hyperlipidemia type (E78.5) Active confirmed His lipids have been stable. Fasting lipid profile is being done periodically. Problem Benign prostatic hypertrophy without outflow obstruction (003705234) Benign prostatic hyperplasia without lower urinary tract symptoms (N40.0) Active confirmed He reports rising 2 or 3 times a night to urinate. He does not wish to go back to urology for to have a prostate biopsy artery of any new medications. He says he goes right back to sleep and is happy with his quality of life at this time. Problem 293846389 Elevated PSA (R97.20) Active confirmed He remains under the care of a urologist, Dr. Sahw. He has declined a biopsy prostate nodule and any form of treatment so far. His PSA September 09, 2023 was 9.2 with a free PSA of 10.7%. It had fallen from 10.7 a year ago to its current value of 9.7. He has chosen active surveillance is appropriate at his age. He has been compliant with the finasterideI have referred him back to Dr. Shaw for further urologic evaluation. 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 He has been to the orthopedist. He is considering whether to have surgery your continue with injections of gel. Problem [id number] Prostate nodule (N40.2) Active confirmed He is under the care of Urology I counseled him today to allow the biopsy and appropriate treatment to take place. He is going to consider it.He has toe the urologist he does not want a biopsy or treatment the PSA has been stable. Last September, when he saw the urologist last the PSA has dropped slightly. 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 The one on his left shoulder was 1.5 mm more on the right was 0.5 for the reservoir level. Is going to see a surgeon tomorrow to discuss aggressive resection. Vital Signs Heart Rate 57 /min 12/31/2024 Temperature 98.1 degrees Fahrenheit 12/31/2024 Respiratory Rate 15 /min 12/31/2024 Oximetry 99 % 12/31/2024 Blood pressure diastolic 85 mm Hg 12/31/2024 Height 69 in 12/31/2024 Blood pressure systolic 148 mm Hg 12/31/2024 Weight 202 lbs 12/31/2024 BMI 29.83 kg/m2 12/31/2024 Encounters Encounter Location Date Provider Diagnosis Rocael Flores III, MD [address] [place] [address] [place] [address] 12/31/2024 Rocael Flores Multiple primary malignant melanomata C43.9 ; Essential (primary) hypertension I10 and Chronic fatigue R53.82 Rocael Flores III, MD [address] [place] [address] [place] [address] 03/21/2024 Rocael Flores Essential (primary) hypertension I10 ; Prostate nodule N40.2 ; Benign prostatic hyperplasia without lower urinary tract symptoms N40.0 ; Hyperlipidemia, unspecified hyperlipidemia type E78.5 ; Elevated PSA R97.20 ; Arthritis of knee, right M17.11 and Overweight E66.3 Rocael Flores III, MD [address] [place] [address] [place] [address] 09/11/2024 Rocael Flores Prostate nodule N40. 2 ; Elevated PSA R97.20 ; Benign prostatic hyperplasia without lower urinary tract symptoms N40.0 ; Essential (primary) hypertension I10 ; Arthritis of knee, right M17.11 ; Hyperlipidemia, unspecified hyperlipidemia type E78.5 ; Vitamin D deficiency E55.9 and Obesity, unspecified E66.9 Rocael Flores III, MD [address] [place] [address] [place] [address] 12/12/2024 Rocael Flores Obesity, unspecified E66.9 ; Multiple primary malignant melanomata C43.9 ; Benign prostatic hyperplasia without lower urinary tract symptoms N40.0 ; Essential (primary) hypertension I10 ; Arthritis of knee, right M17.11 ; Hyperlipidemia, unspecified hyperlipidemia type E78.5 ; Vitamin D deficiency E55.9 and Prostate nodule N40.2 Rocael Flores III, MD [address] [place] [address] [place] [address] 02/20/2024 Rocael Flores III, MD [address] [place] [address] [place] [address] 09/17/2024 Rocael Flores III, MD [address] [place] [address] [place] [address] 12/03/2024 Rocael Flores III, MD [address] [place] [address] [place] [address] 12/04/2024 Rocael Flores III, MD [address] [place] [address] [place] [address] 12/12/2024 Rocael Flores III, MD [address] [place] [address] [place] [address] 12/14/2024 Rocael Flores III, MD [address] [place] [address] [place] [address] 12/21/2024 Rocael Flores Assessments Encounter Date Diagnosis (ICD Code) Assessment Notes Treat ment Notes Treatment Clinical Notes 12/31/2024 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 The one on his left shoulder was 1.5 mm more on the right was 0.5 for the reservoir level. Is going to see a surgeon tomorrow to discuss aggressive resection. 03/21/2024 Essential (primary) hypertension (ICD-10 - I10) His blood pressure is stable at 134/78. No change in his regimen was made today. 03/21/2024 Prostate nodule (ICD-10 - N40.2) He is under the care of Dr. Dan I counseled him today to allow the biopsy and appropriate treatment to take place. He is going to consider it.He has toe the urologist he does not want a biopsy or treatment the PSA has been stable. Last September, when he saw the urologist last the PSA has dropped slightly. 09/11/2024 Elevated PSA (ICD-10 - R97.20) He remains under the care of a urologist, Dr. Shaw. He has declined a biopsy prostate nodule and any form of treatment so far. His PSA September 09, 2023 was 9.2 with a free PSA of 10.7%. It had fallen from 10.7 a year ago to its current value of 9.7. He has chosen active surveillance is appropriate at his age. He has been compliant with the finasterideI have referred him back to Dr. Shaw for further urologic evaluation. 09/11/2024 Prostate nodule (ICD-10 - N40.2) He is under the care of Urology I counseled him today to allow the biopsy and appropriate treatment to take place. He is going to consider it.He has toe the urologist he does not want a biopsy or treatment the PSA has been stable. Last September, when he saw the urologist last the PSA has dropped slightly. 12/12/2024 Obesity, unspecified (ICD-10 - E66.9) His [...] 12/31/2024 Essential (primary) hypertension (ICD-10 - I10) 03/21/2024 Benign prostatic hyperplasia without lower urinary tract symptoms (ICD-10 - N40.0) He reports rising 2 or 3 times a night to urinate. He does not wish to go back to urology for to have a prostate biopsy artery of any new medications. He says he goes right back to sleep and is happy with his quality of life at this time. 09/11/2024 Benign prostatic hyperplasia without lower urinary tract symptoms (ICD-10 - N40.0) He reports rising 2 or 3 times a night to urinate. He does not wish to go back to urology for to have a prostate biopsy artery of any new medications. He says he goes right back to sleep and is happy with his quality of life at this time. 12/12/2024 Benign prostatic hyperplasia without lower urinary tract symptoms (ICD-10 - N40.0) He reports rising 2 or 3 times a night to urinate. He does not wish to go back to urology for to have a prostate biopsy artery of any new medications. He says he goes right back to sleep and is happy with his quality of life at this time. 12/31/2024 Chronic fatigue (ICD-10 - R53.82) 03/21/2024 Hyperlipidemia, unspecified hyperlipidemia type (ICD-10 - E78.5) His lipids have been stable. Fasting lipid profile is being done periodically. 09/11/2024 Essential (primary) hypertension (ICD-10 - I10) His blood pressure is stable at 140/70. No change in his regimen was made today. 12/12/2024 Essential (primary) hypertension (ICD-10 - I10) His blood pressure is stable at 140/70. No change in his regimen was made today. 03/21/2024 Elevated PSA (ICD-10 - R97.20) He remains under the care of a urologist, Dr. Shaw. He has declined a biopsy prostate nodule and any form of treatment so far. His PSA is stable and not rising. It has fallen from 10.7 a year ago to its current value of 9.7. He has chosen active surveillance is appropriate at his age. He has been compliant with the finasteride. 09/11/2024 Arthritis of knee, right (ICD-10 - M17.11) The pain in his knee is about the same as on his last visit. He has been to the orthopedist. He is considering whether to have surgery your continue with injections of gel. 12/12/2024 Arthritis of knee, right (ICD-10 - M17.11) The pain in his knee is about the same as on his last visit. He has been to the orthopedist. He is considering whether to have surgery your continue with injections of gel. 03/21/2024 Arthritis of knee, right (ICD-10 - M17.11) The pain in his knee is about the same as on his last visit. He has been to the orthopedist. He is considering whether to have surgery your continue with injections of gel. 09/11/2024 Hyperlipidemia, unspecified hyperlipidemia type (ICD-10 - E78.5) His lipids have been stable. Fasting lipid profile is being done periodically. 12/12/2024 Hyperlipidemia, unspecified hyperlipidemia type (ICD-10 - E78.5) His lipids have been stable. Fasting lipid profile is being done periodically. 03/21/2024 Overweight (ICD-10 - E66.3) His body mass index is 29. We have discussed a weight loss strategy. He is no longer in the obese range. 09/11/2024 Vitamin D deficiency (ICD-10 - E55.9) He will continue on a vitamin D supplement. 12/12/2024 Vitamin D deficiency (ICD-10 - E55.9) He will continue on a vitamin D supplement. 09/11/2024 Obesity, unspecified (ICD-10 - E66.9) His body mass index is 31. She has gained 10 pounds since his last visit. I recommended aggressive weight loss, sodium restriction through a diet low in animal fat, designed to use one half of a pound per week. 12/12/2024 Prostate nodule (ICD-10 - N40.2) He [...] PSA has dropped slightly. Plan Of Treatment Pending Test Test Name Order Date PROFILE, FASTING (COMPREHENSIVE METABOLI C) 03/21/2024 PROFILE, FASTING (COMPREHENSIVE METABOLI C) 08/20/2021 PROFILE, FASTING (COMPREHENSIVE METABOLI C) 05/08/2019 PROFILE, FASTING (COMPREHENSIVE METABOLI C) 11/15/2018 PROFILE, FASTING (COMPREHENSIVE METABOLI C) 08/14/2019 PROFILE, FASTING (COMPREHENSIVE METABOLI C) 08/31/2022 PROFILE, FASTING (COMPREHENSIVE METABOLI C) 09/11/2024 PROFILE, RANDOM (COMPREHENSIVE METABOLIC ) 09/07/2023 PROFILE, RANDOM (COMPREHENSIVE METABOLIC ) 11/25/2021 PROFILE, RANDOM (COMPREHENSIVE METABOLIC ) 08/25/2021 PROFILE, RANDOM (COMPREHENSIVE METABOLIC ) 11/19/2019 LIPID PANEL 11/25/2021 LIPID PANEL 03/21/2024 LIPID PANEL 08/20/2021 LIPID PANEL 05/08/2019 LIPID PANEL 11/15/2018 LIPID PANEL 08/14/2019 LIPID PANEL 08/31/2022 FREE T4 (FT4) 08/14/2019 FREE T4 (FT4) 08/25/2021 FREE T4 (FT4) 11/19/2019 FREE T4 (FT4) 08/20/2021 FREE T4 (FT4) 05/08/2019 TSH (THYROID STIMULATING HORMONE) 2019 TSH (THYROID STIMULATING HORMONE) 2019 TSH (THYROID STIMULATING HORMONE) 2021 TSH (THYROID STIMULATING HORMONE) 2019 TSH (THYROID STIMULATING HORMONE) 2021 PSA, TOTAL 09/11/2024 PSA, TOTAL 08/20/2021 PSA, TOTAL 11/25/2021 PSA, TOTAL 08/14/2019 PSA, TOTAL 11/19/2019 PSA, TOTAL 09/07/2023 PSA, TOTAL 11/15/2018 PSA, TOTAL+FREE 08/31/2022 PSA, TOTAL+FREE 08/25/2021 CBC w DIFF 11/15/2018 CBC w DIFF 09/11/2024 CBC w DIFF 08/20/2021 CBC w DIFF 05/08/2019 CBC w DIFF 08/31/2022 CBC w DIFF 11/25/2021 CBC w DIFF 08/14/2019 CBC w DIFF 03/21/2024 CBC w DIFF 08/25/2021 CBC w DIFF 11/19/2019 SED RATE (ESR) 05/08/2019 SED RATE (ESR) 08/14/2019 VITAMIN D 25-OH TOTAL 08/31/2022 VITAMIN D 25-OH TOTAL 11/25/2021 CBC WITH AUTO DIFF 09/07/2023 Lipid Panel 09/11/2024 ECG 12 lead EKG 12/31/2024 Next Appt Details Provider Name:Rocael Flores, 01/23/2025 03:00:00 PM, [address] [place] [address] [address], [place], [address], Provider Name:Rocael Flores, 09/13/2025 04:00:00 PM, [address] [place] [address] [address], [place], [address], Insurance Providers Payer Name Payer Address Payer Phone Subscriber Number Group Number Insured Name Patient Relationship to Insured Coverage Start Date Coverage End Date MEDICARE NGS [address] [place] [phone] [id number] RizwanLogan Self - patient is the insured [facility] [address] [place], [place] [id number] RizwanLogan childers Self - patient is the insured Medical (General) History Medical History History ICD Code hernia obesity hypertension benign prostatic hypertrophy Nodular prostate with elevated PSA Arthritis right knee Chronic cough Surgical History Surgery Date(Month/Year) No history torn meniscus left knee 2013 herniorrhaphy Hospitalization History Reason Date(Month/Year) No history
--- OUTSIDE RECORDS SUMMARY | 2024-12-31 20:14 | XMS_ITS ---
Author Name [facility] Organization Unknown Problems Problem Status Onset Date Problem Type Date of Resoluti on Source Melanoma of back ([facility] V24, [facility] V28) active EncounterDiagnosisAct CT_[facility]N EMG Melanoma of neck ([facility] V24, [facility] V28) active EncounterDiagnosisAct CT_THN EMG Encounters Encounter Type Encounter Reason Primary Diagnosis Location Date Ambulatory melanoma back Malignant melano ma of scalp and neck ([facility] V24, [facility] V28) [facility] 12/20/2024 Care Team Organization Name Specialty Phone Email Start Date End Da te [facility] Rocael Flores Primary Care [facility] Rocael Flores Primary Care
--- OUTSIDE RECORDS SUMMARY | 2024-12-31 20:14 | XMS_ITS | Clinical Summary ---
Author Organization [facility] Address [address] [place] [address] Care Team Providers Care Community Health Educator Name Role Phone Rocael Flores MD Primary Care Provider Active Problems Problem Noted Date Diagnosed Date Melanoma of neck (CMS/HCC V24, CMS/HCC V28) 07/2024 Melanoma of back (CMS/HCC V24, CMS/HCC V28) 07/2024 Encounters Date Type Department Care Team Description 12/20/2024 11:30 AM EDT Consult [facility] [address] [place] [phone] Shruti Haq MD Melanoma of neck (CMS/HCC V24, CMS/HCC V28) (Primary Dx); Melanoma of back (CMS/HCC V24, CMS/HCC V28) from Last 3 Months Social History Tobacco Use Types Packs/Day Years Used Date Smoking Tobacco: Never Assessed Sex and Gender Information Value Date Recorded Sex Assigned at Not on file Legal Sex Male 7:58 PM EST Gender Identity Not on file Sexual Orientation Not on file Plan of Treatment Upcoming Encounters Date Type Department Care Team (Latest Contact Info) Description 01/11/2025 10:00 AM EDT Appointment [facility] Nuclear Medicine [address] [place] [phone] 01/11/2025 4:50 PM EDT Hospital Encounter [facility] Ambulatory Surgical Unit [address] [place] [phone] Shruti Haq MD [address], [address] [place] [address] 01/11/2025 4:50 PM EDT - 01/11/2025 7:10 PM EDT Surgery [facility] Ambulatory Surgical Unit [address] [place] [address] [facility] [address] [place] [address] RIGHT UPPER BACK LYMPHOCINTOGRAM [[id number] (CPT )] Scheduled Procedures Name Priority Associated Diagnoses Date/Ti [...] V24, CMS/HCC V28) 01/11/2025 4:50 PM EDT Health Maintenance Due Date Last Done Comments DTaP,Tdap,and Td Vaccines (1 - Tdap) 1959 Pneumococcal Vaccine: 50+ Ye ars (1 of 1 - PCV) 1988 Zoster Vaccines (1 of 2) 1988 RSV Immunization Adult Patie nts (1 - 1-dose 75+ series) 2013 Depression Screening 04/18/2024 Cholesterol Screening (Lipid Panel) 12/07/2024 Falls Risk Assessment 12/07/2024 Medicare Annual Wellness Visit 12/07/2024 Social Influencers of Health Screening 12/07/2024 COVID-19 Vaccine (1 - 2023-2 5 season) 2024 Influenza Vaccine (#1) 2024 HIB Vaccines Aged Out No longer eligi ble based on patient's age to complete this topic HPV Vaccines Aged Out No longer eligi ble based on patient's age to complete this topic Hepatitis A Vaccines Aged Out No long er eligible based on patient's age to complete this topic Hepatitis B Vaccines Aged Out No long er eligible based on patient's age to complete this topic IPV Vaccines Aged Out No longer eligi ble based on patient's age to complete this topic MMR Vaccines Aged Out No longer eligi ble based on patient's age to complete this topic Meningococcal ACWY Vaccine Aged Out N o longer eligible based on patient's age to complete this topic Meningococcal B Vaccine Aged Out No l onger eligible based on patient's age to complete this topic RSV Immunization Patients Un mariaa 20 months Aged Out No longer eligible b ased on patient's age to complete this topic Varicella Vaccines Aged Out No longer eligible based on patient's age to complete this topic Insurance [place] Care Teams Community Health Educator Relationship Specialty Start Date End Date Rocael Flores MD [address] [place] [id number] PCP - General Oncology 12/07/24
== END ==
LOC: HO.CARD 14:45
PROVIDERS: PCP Internal Medicine Medical Oncology; Visit Provider Internal Medicine Medical Oncology
DX: I10 Essential (primary) hypertension (principal); C34.90 Malignant neoplasm of unspecified part of unspecified bronchus or lung; R53.82 Chronic fatigue, unspecified
CPT/HCPCS: 93005

== ENCOUNTER → 2024-12-31 15:05 | Outpatient (BNV) | payer MEDICARE, SELFPAY | PROVIDERS: PCP Internal Medicine Medical Oncology; Visit Provider Internal Medicine | DX: I44.0 Atrioventricular block, first degree (principal); I49.1 Atrial premature depolarization; I45.10 Unspecified right bundle-branch block; R00.1 Bradycardia, unspecified | CPT/HCPCS: 93010 ==